=== PATIENT | female | born 1990 | race Caucasian/White ===

== ENCOUNTER 2016-05-14 12:33 | Emergency (ER) | payer MEDICAID, OTHER ==
[~2016-05-14] VITALS: Wt 51.0 kg
[2016-05-14] MEDS ORDERED: ONDANSETRON 4 MG INJ IV STA (13:57)
[2016-05-14] MEDS ORDERED: SOD CHLORIDE 0.9% 1,000 ML IV ONE ×2 (14:00→16:00)
[2016-05-14 14:53] LABS: ADD UMIC YES; URINE BILIRUBIN (Dip) NEGATIVE (NEGATIVE); URINE BLOOD (Dip) 3+ (NEGATIVE); URINE COLOR LT. YELLOW (YELLOW); URINE GLUCOSE (Dip) NEGATIVE (NEGATIVE); URINE KETONES (Dip) 3+ (NEGATIVE); URINE LEUKOCYTE ESTERASE (Dip) NEGATIVE (NEGATIVE); URINE NITRITE (Dip) NEGATIVE (NEGATIVE); URINE TOTAL PROTEIN (Dip) 1+ (NEGATIVE); URINE UROBILINOGEN (Dip) 1.0 E.U./dL (0.1-1.0)
[2016-05-14 14:54] LABS: HEMATOCRIT 41.6 % (37.0-47.0); MEAN CORPUSCULAR HEMOGLOBIN 27.7 pg (29.0-33.0); MEAN CORPUSCULAR HGB CONC 33.6 g/dl (32.0-37.0); MEAN CORPUSCULAR VOLUME 82.5 fl (82.0-101.0); MEAN PLATELET VOLUME 10.2 fl (7.4-10.4); PLATELET COUNT 252 10^3/UL (140-440); RED BLOOD COUNT 5.04 10^6/ul (4.20-5.40); RED CELL DISTRIBUTION WIDTH 14.9 % (11.5-14.5); UNCORRECTED WBC 10.9 10^3/ul (4.8-10.8); WHITE BLOOD COUNT 10.9 10^3/ul (4.8-10.8)
[2016-05-14 15:02] LABS: CONDITION 1; LH ANALYZER COMMENTS 1; SUSPECT 1
[2016-05-14 15:03] LABS: POTASSIUM 3.5 mmol/L (3.5-5.1)
[2016-05-14 15:05] LABS: ALBUMIN/GLOBULIN RATIO 1.38; BILIRUBIN,INDIRECT 0.2 mg/dl (0-1.1); BILIRUBIN,TOTAL 0.2 mg/dl (0.2-1.3); CREATININE 0.55 mg/dl (0.44-1.00); TOTAL PROTEIN 8.6 g/dl (6.1-8.1)
[2016-05-14 15:06] LABS: CALCIUM 9.8 mg/dl (8.4-10.2)
[2016-05-14 15:24] LABS: URINE RBCS >200 /HPF (0)
[2016-05-14 15:25] LABS: BACTERIA,URINE FEW; MUCUS,URINE FEW
[2016-05-14] MEDS ORDERED: DIPHENHYDRAMINE 50 MG INJ IV ONE (16:00)
[2016-05-14] MEDS ORDERED: METOCLOPRAMIDE 10 MG INJ IV ONE (16:00)
[2016-05-14 16:01] LABS: ANISOCYTOSIS 1+; HYPOCHROMASIA 1+; LYMPHOCYTES # 0.3 10^3/ul (0.8-2.9); MONOCYTE # 0.2 10^3/ul (0.3-0.9); NEUTROPHIL # 10.4 10^3/ul (1.6-7.5)
[2016-05-14 16:02] LABS: PLATELET ESTIMATE PLT APPEAR ADEQUATE
[2016-05-14] MEDS ORDERED: ONDA4TAB8 PO (17:07)
[2016-05-14 17:21] VITALS: BP 109/66; PULSE 95; RESP 20; TEMP 97.5
--- NOTE | 2016-05-14 17:23 | ERD ---
ER Documentation Chief Complaint Date/Time DATE: 05/14/16 TIME: 17:18 Chief Complaint nausea and vomiting since last night with intermittent abd pain, no dysuria HPI This is a 25-year-old female presents to the ER with nausea and vomiting that started last night. Patient began her menstruation last night and had a cramping. Patient does get nausea and vomiting occasionally secondary to menstruation. Patient symptoms however continued throughout today and patient now begins to feel very weak. Vomiting is nonbilious nonbloody. She does not have any diarrhea. She denies any abdominal pain at this time. Patient denies any fevers or chills. ROS 12 point review of systems was done, all negative except per HPI. Medications Home Meds Active Scripts Ondansetron Hcl* (Zofran*) 4 Mg Tablet, 4 MG PO Q6H for NAUSEA AND/OR VOMITING, #30 TAB Prov:RIVERA BURROWS Buzz 05/14/16 Allergies Allergies: Coded Allergies: No Known Allergy (Unverified , 11/29/11) PMhx/Soc History of Surgery: No Anesthesia Reaction: No Hx Neurological Disorder: No Hx Respiratory Disorders: No Hx Cardiac Disorders: No Hx Psychiatric Problems: No Hx Miscellaneous Medical Probl: No Hx Alcohol Use: No Hx Substance Use: No Hx Tobacco Use: No Physical Exam Vitals Vital Signs Date Time Temp Pulse Resp B/P Pulse Ox O2 Delivery O2 Flow Rate FiO2 05/14/16 12:42 97.3 86 21 134/82 100 Physical Exam GENERAL: The patient is well developed and appropriate for usual state of health , in no apparent distress. HEENT: Atraumatic. Moist mucous membranes. CHEST: Clear to auscultation bilaterally. There are no rales, wheezes or rhonchi. HEART: Regular rate and rhythm. No murmurs, clicks, rubs or gallops. ABDOMEN: Soft, nontender and nondistended. Good bowel sounds. No rebound or guarding. No gross peritonitis. No gross organomegaly or masses. No Garcia sign or McBurney point tenderness. BACK: No midline or flank tenderness. NEURO: Alert and oriented. SKIN: There is no apparent rash or petechia. The skin is warm and dry. Normal capillary refill Result Diagram: 05/14/16 1430 05/14/16 1430 Results 24 hrs Laboratory Tests Test 05/14/16 14:30 Alanine Aminotransferase (ALT/SGPT) 18IU/L Albumin 5.0g/dl Albumin/Globulin Ratio 1.38 Alkaline Phosphatase 120IU/L Anion Gap 21 Anisocytosis 1+ Aspartate Amino Transf (AST/SGOT) 20IU/L Basophils # 0.010^3/ul Basophils % 0.0% Blood Morphology Comment Blood Urea Nitrogen 11mg/dl Calcium Level 9.8mg/dl Carbon Dioxide Level 24mmol/L Chloride Level 105mmol/L Creatinine 0.55mg/dl Direct Bilirubin 0.00mg/dl Eosinophils # 0.010^3/ul Eosinophils % 0.0% Giant Platelets OCCASIONAL Globulin 3.60g/dl Glucose Level 132mg/dl Hematocrit 41.6% Hemoglobin 14.0g/dl Hypochromasia 1+ Indirect Bilirubin 0.2mg/dl Lymphocytes # 0.310^3/ul Lymphocytes % 3.0% Mean Corpuscular Hemoglobin 27.7pg Mean Corpuscular Hemoglobin Concent 33.6g/dl Mean Corpuscular Volume 82.5fl Mean Platelet Volume 10.2fl Monocytes # 0.210^3/ul Monocytes % 2.0% Neutrophils # 10.410^3/ul Neutrophils % 95.0% Nucleated Red Blood Cells # 0.010^3/ul Nucleated Red Blood Cells % 0.0/100WBC Platelet Count 55291^3/UL Platelet Estimate PLT APPEAR ADEQUATE Potassium Level 3.5mmol/L Red Blood Count 5.0410^6/ul Red Cell Distribution Width 14.9% Sodium Level 146mmol/L Total Bilirubin 0.2mg/dl Total Protein 8.6g/dl Urine Bacteria FEW Urine Bilirubin NEGATIVE Urine Clarity SLIGHTLY CLOUDY Urine Color LT. YELLOW Urine Epithelial Cells FEW Urine Glucose NEGATIVE% Urine Hemoglobin 3+ Urine Ketones 3+ Urine Leukocyte Esterase NEGATIVE Urine Microscopic RBC >200/HPF Urine Microscopic WBC 0-2/HPF Urine Mucus FEW Urine Nitrite NEGATIVE Urine Specific [place] 1.010 Urine Total Protein 1+ Urine Urobilinogen 1.0 E.U./dL Urine pH >=9.0 White Blood Count 10.910^3/ul Current Medications Medications (Trade) Dose Ordered Sig/Tamika Route PRN Reason Start Time Stop Time Status Last Admin Dose Admin Ondansetron HCl 4 mg 4 mg ONCE STAT IV 05/14/16 13:57 05/14/16 13:59 DC 05/14/16 14:27 Sodium Chloride 1,000 ml @ 1,000 mls/hr Q1H ONCE IV 05/14/16 14:00 05/14/16 14:59 DC 05/14/16 14:27 Sodium Chloride (NS) 1,000 ml @ 1,000 mls/hr Q1H ONCE IV 05/14/16 16:00 05/14/16 16:59 DC 05/14/16 15:56 Metoclopramide HCl (Reglan) 10 mg ONCE ONCE IV 05/14/16 16:00 05/14/16 16:01 DC 05/14/16 15:56 Diphenhydramine HCl (Benadryl) 25 mg ONCE ONCE IV 05/14/16 16:00 05/14/16 16:01 DC 05/14/16 15:56 Procedures/MDM This is a 25-year-old female presents to the ER with nausea and vomiting that started last night. This is likely viral in etiology. Suspicion for obstruction, meningitis, sepsis is low. Patient does not have any problems with her bowel movement and she is not constipated. Patient for cholecystitis, choledocholithiasis, kidney stone is low. She does not have any abdominal pain at all and her physical examination is benign. Patient's nausea and vomiting was controlled. The ER she was able to drink fluids by mouth. Patient will be sent home with Rhina. She is to follow-up with her primary care doctor within 1-2 days or return to ER sooner if symptoms worsen. My Medical decision making reassured with the patient she understands and agrees with plan Departure Diagnosis: Primary Impression: Nausea and vomiting Condition: Stable Patient Instructions: Nausea and Vomiting-Adult Additional Instructions: Call your primary care doctor TOMORROW for an appointment during the next 1-2 days.See the doctor sooner or return here if your condition worsens before your appointment time. RIVERA BURROWS May 14, 2016 17:23
== END 2016-05-14 17:23 | disposition home or self-care (01) ==
LOC: FTE 12:33
DX: R11.2 Nausea with vomiting, unspecified (principal)
CPT/HCPCS: 80053; 81001; 84703; 85025; 96361; 96374; 96375; J1200; J2405; J2765; J7030; Z7502; 81003